=== PATIENT | female | born 1985 | race Caucasian/White ===

== ENCOUNTER → 2020-03-28 12:13 | Outpatient (CLI) | payer OTHER, SELFPAY ==
--- NOTE | ~2020-03-28 | MR_ITS ---
EXAMINATION: MR brain IAC wo/w con DATE: 03/28/2020 13:21 INDICATION: Acoustic neuroma. TECHNIQUE: Magnetic resonance imaging (MRI) of the brain, brainstem, and internal auditory canals was performed without and with 18 mL MultiHance intravenous contrast. Sequences included sagittal and ax ial T1-weighted FSE, axial diffusion-weighted FS EPI, axial T2*-weighted GRE, axial T2-weighted FLAIR Propeller, axial T2-weighted Propeller, small tspbn-ji-dsmu coronal FIESTA, small udrjp-no-sjrf saira nal T1-weighted FSE, and small ezdtl-da-cojg axial T1-weighted SPGR. Postcontrast sequences included axial T1-weighted FSE, small qhmyk-fn-skkk coronal T1-weighted FSE, and small wxbar-wp-cfkr axial T1- weighted SPGR. Apparent diffusion coefficient (ADC) maps were created. COMPARISON: Brain MRI 01/05/2019 FINDINGS: There are 2 punctate foci of increased T2-weighted signal intensity in the cerebral white m atter, which is within normal limits for the patient's age. There is no acute ischemic infarct or int racranial hemorrhage. The ventricles are normal in size. The orbits are normal. The paranasal sinuses are clear. There is a 3 mm enhancing mass in right internal auditory canal. IMPRESSION: 1. Stable 3 mm enhancing mass in the right internal auditory canal, consistent with a vestibular schw annoma. Reviewed, dictated and finalized at location A. [facility] IMPRESSION: 1. Stable 3 mm enhancing mass in the right internal auditory canal, consistent with a vestibular schwannoma.
[2020-03-28 12:46] LABS: Estimated Glomerular Filt Rate > 60
== END ==
PROVIDERS: PCP Physician Assistant; Visit Provider Physician Assistant
DX: D33.3 Benign neoplasm of cranial nerves (principal)
CPT/HCPCS: 70553; A9577